=== PATIENT | female | born 1940 | race Two or more races ===

== ENCOUNTER 2019-12-22 12:05 | Inpatient (IN) | payer MEDICAID, OTHER ==
[~2019-12-22] VITALS: Ht 160 cm; Wt 90.7 kg
[2019-12-22] MEDS ORDERED: ASCORBIC ACID 500 MG TAB PO ONE (13:00)
[2019-12-22] MEDS ORDERED: DOXYCYCLINE 100 MG TAB/CAP PO ONE (13:00)
[2019-12-22] MEDS ORDERED: ZINC SULFATE 220mg CAP or TAB PO ONE (13:00)
[2019-12-22] MEDS ORDERED: SODIUM CHLORIDE 0.9% 1,000 ML IV ONE (13:00)
[2019-12-22 13:44] LABS: Eosinophils # (auto) 0.2 10 ^3/uL (0-0.8); Mean Corpuscular Hemoglobin 24.3 pg (28.0-32.0)
[2019-12-22 13:45] LABS: Basophils # (auto) 0.1 10 ^3/uL (0-0.2); Basophils % (auto) 1.5 % (0.0-2.0); Eosinophils % (auto) 2.4 % (0.0-7.0); Hematocrit 37.2 % (36.0-46.0); Hemoglobin 11.6 g/dL (12.2-16.2); Lymphocytes # (auto) 2.2 10 ^3/uL (0.4-5.4); Mean Corpuscular Hgb Conc. 31.2 g/dL (32.0-36.0); Mean Corpuscular Volume 77.9 fL (80.0-100.0); Monocytes # (auto) 0.8 10 ^3/uL (0-1.3); Monocytes % (auto) 11.3 % (0.0-12.0); Neutrophils # (auto) 3.7 10 ^3/uL (1.6-8.6); Neutrophils % (auto) 53.8 % (37.0-80.0); Nucleated Red Blood Cells % 0.1 %; Platelet Count (auto) 261 10^3/uL (140-450); Red Blood Cells 4.77 10^6/uL (4.0-5.20); Red Cell Distribution Width 18.9 % (11.8-14.3); White Blood Cell 6.9 10^3/uL (4.4-10.8)
[2019-12-22 13:54] LABS: Anion Gap 4 (5-15); Blood Urea Nitrogen 31 mg/dL (7-18); Calcium 8.1 mg/dL (8.5-10.1); Carbon Dioxide 26 mmol/L (21-32); Chloride 110 mmol/L (98-107); Glucose 170 mg/dL (74-106); Magnesium 2.4 mg/dL (1.6-2.6); Potassium 4.3 mmol/L (3.5-5.1); Sodium 140 mmol/L (136-145)
[2019-12-22 13:56] LABS: INR 1.03 (0.9-1.15); Partial Thromboplastin Time 27.1 sec (23.0-31.2)
[2019-12-22 14:01] LABS: Alanine Aminotransferase 20 U/L (13-56); Alkaline Phosphatase 83 U/L (45-117); Aspartate Aminotransferase 21 U/L (15-37); BUN/Creatinine Ratio 14.1; Bilirubin, Total 0.7 mg/dL (0.2-1.0); GFR African American 28 mL/min; GFR Non-African American 23 mL/min; Total Protein 7.7 g/dL (6.4-8.2)
[2019-12-22] MEDS ORDERED: MORPHINE SULF INJ 2 MG/ML SYRINGE 1ML IV PRN ×3 (15:30→20:00)
[2019-12-22] MEDS ORDERED: NITROGLYCERIN 0.4 MG SL TAB SL PRN ×2 (15:30→20:00)
[2019-12-22 16:37] LABS: Urine Bacteria NONE SEEN /hpf (None Seen); Urine Blood Negative /uL (Negative); Urine Mucus FEW (None Seen); Urine Specific Gravity 1.008 (1.001-1.035); Urine WBC 1 /hpf (0 - 5)
[2019-12-22] MEDS ORDERED: SODIUM CHLORIDE 0.9% 1,000 ML IV SCH (19:54)
[2019-12-22] MEDS ORDERED: HYDROcodone-ACET 5/325MG TAB PO PRN (20:00)
[2019-12-22] MEDS ORDERED: MECLIZINE HCL 25 MG TAB PO PRN (20:00)
[2019-12-22] MEDS ORDERED: ONDANSETRON HCL 4 MG/2 ML VIAL IV PRN (20:00)
[2019-12-22] MEDS ORDERED: DOCUSATE SOD 100 MG CAP PO PRN (20:00)
[2019-12-22] MEDS ORDERED: DEXTROSE (50%) 50ML SYRG IV PRN (20:00)
[2019-12-22] MEDS ORDERED: FAMOTIDINE 20 MG TAB PO ONE (20:00)
[2019-12-22] MEDS ORDERED: hydrALAZINE HCL 20 MG/ML VL IV PRN (20:00)
[2019-12-22] MEDS ORDERED: LORazepam 0.5 MG TAB PO PRN (20:00)
[2019-12-22] MEDS ORDERED: ACETAMINOPHEN 325 MG TAB PO PRN (20:00)
[2019-12-22] MEDS ORDERED: ACETAMINOPHEN 500 MG TAB PO PRN (20:00)
[2019-12-22] MEDS ORDERED: ALUM & MAG HYDROX-SIMETH LIQ(MAALOX) 30 ML PO PRN (20:00)
--- NOTE | 2019-12-22 20:00 | NUR ---
Telemetry admit from ER: Patient admitted to Telemetry unit, no SBAR received. Patient oriented to primary RN, unit, room, bed, and unit policies regarding patient care and visiting hours. Novel respiratory precautions in place, Patient now on continuous telemetry monitoring, tele box #4 and telemetry reading on arrival to unit is 70. Patient placed on bedside oxygen 2L nasal canula and O2 saturation 99%, respirations even and unlabored no s/s of SOB or distress, weighed by bed scale and encouraged to call if they need something. Instructed on POC with assistance or certified court/medical interpreter, All questions and concerns addressed, patient verbalized understanding.
--- NOTE | 2019-12-22 20:01 | NUR ---
Spoke with Family Niece Rena called to speak to primary RN, niece unhappy with POC and verbally hostile and demanded to speak to charge aide. Will notify charge aide.
[2019-12-22 20:10] VITALS: BP 130/75
--- NOTE | 2019-12-22 20:10 | NUR ---
Spoke with charge account identification clerk, josesito Chase is coming to pick up man patient, does not want her to be at the hospital. Spoke to patient, patient verbalizes wishes to leave AMA.
[2019-12-22] MEDS ORDERED: ALBUTEROL SULFATE 90 MCG MDI IN ONE (20:14)
[2019-12-22 20:27] VITALS: BP 110/64
--- NOTE | 2019-12-22 21:20 | NUR ---
AMA Note Patient states they want to leave the hospital Against Medical Advice (AMA). Patient encouraged to stay for further treatment/stabilization. MD notified of patient's wishes. Patient advised of the risks and benefits of leaving AMA. Patient verbalized understanding. Patient encouraged to return to the ER if symptoms do not improve or worsen.
--- NOTE | 2019-12-22 21:28 | NUR ---
IV discontinued, catheter tip intact and pressure dressing applied, patient tolerated well. Tele box removed and sent back to ICU. Patient transferred to vehicle with belongings via wheelchair without incident, accompanied by staff member, no distress noted upon departure.
[2019-12-22] MEDS ORDERED: DOXYCYCLINE 100MG/250ML 250 ML IV SCH (22:00)
[2019-12-22] MEDS ORDERED: ATORVASTATIN 20 MG TAB PO SCH (22:00)
[2019-12-22] MEDS ORDERED: GABAPENTIN 100 MG CAP PO SCH (22:00)
[2019-12-22] MEDS ORDERED: CALCIUM CARB 500 MG CHEW TAB PO SCH (22:00)
[2019-12-22] MEDS ORDERED: InsuLIN REG 1unit/0.01ml Soln (100units/ml) SC SCH (22:00)
[2019-12-22] MEDS ORDERED: ALBUTEROL SULF HFA 90MCG INH 200DOSE IN SCH (22:00)
[2019-12-22] MEDS ORDERED: ACCU-CHEK COMFORT CURVE STRIP VI SCH (22:00)
[2019-12-22] MEDS ORDERED: INSULIN LANTUS (GLARGINE) 1 /0.01ml (100units/ml) SC SCH (22:00)
[2019-12-22] MEDS ORDERED: DONEPEZIL HYDROCHLORIDE 5 MG TAB PO SCH (22:00)
[2019-12-23] MEDS ORDERED: FUROSEMIDE 20 MG/2 ML VIAL IV SCH (06:00)
[2019-12-23] MEDS ORDERED: ISOSORBIDE DINITRATE 10 MG TAB PO SCH (06:00)
[2019-12-23] MEDS ORDERED: InsuLIN REG 1unit/0.01ml Soln (100units/ml) SC SCH (07:00)
[2019-12-23] MEDS ORDERED: ENOXAPARIN SOD 30 MG/0.3 ML SYRINGE SC SCH (10:00)
[2019-12-23] MEDS ORDERED: ASCORBIC ACID 1,000 MG TAB PO SCH (10:00)
[2019-12-23] MEDS ORDERED: FAMOTIDINE 20 MG TAB PO SCH (10:00)
[2019-12-23] MEDS ORDERED: CHOLECALCIFEROL (VITD3) 2,000 UNIT CAP PO SCH (10:00)
[2019-12-23] MEDS ORDERED: ZINC SULFATE 220mg CAP or TAB PO SCH (10:00)
[2019-12-23] MEDS ORDERED: ASPirin 81 mg TAB PO SCH (10:00)
[2019-12-23] MEDS ORDERED: DexAMETHasone SOD PHOS 10MG/1ML VIAL INJ IV SCH (10:00)
== END 2019-12-22 21:27 | disposition left against medical advice (07) | DRG 137 ==
LOC: ER 12:05 → EDBD 12:05 → TELE 12:06 → TELE-E-ADS 19:55
PROVIDERS: ADMIT Hospitalist; ATTEND Hospitalist
DX: U07.1 COVID-19 (principal); E11.22 Type 2 diabetes mellitus with diabetic chronic kidney disease; E44.0 Moderate protein-calorie malnutrition; H81.10 Benign paroxysmal vertigo, unspecified ear; I12.9 Hypertensive chronic kidney disease with stage 1 through stage 4 chronic kidney disease, or unspecified chronic kidney disease; N18.3 Chronic kidney disease, stage 3 (moderate); N17.0 Acute kidney failure with tubular necrosis; K29.70 Gastritis, unspecified, without bleeding; K21.9 Gastro-esophageal reflux disease without esophagitis; J15.9 Unspecified bacterial pneumonia; J84.9 Interstitial pulmonary disease, unspecified; G30.9 Alzheimer's disease, unspecified; F02.80 Dementia in other diseases classified elsewhere, unspecified severity, without behavioral disturbance, psychotic disturbance, mood disturbance, and anxiety; G20 Parkinson's disease; Z53.29 Procedure and treatment not carried out because of patient's decision for other reasons; D63.8 Anemia in other chronic diseases classified elsewhere
CPT/HCPCS: 36415; 71045; 80053; 81001; 83605; 83735; 84484; 85025; 85610; 85730; 87040; 87086; G0378